=== PATIENT | male | born 1940 | race Caucasian/White ===

== ENCOUNTER 2020-12-08 05:43 | Emergency (ER) | payer MEDICARE, OTHER, SELFPAY ==
[2020-12-08] VITALS (12 sets, daily range): BP systolic 81–181; BP diastolic 47–91; PULSE 47–85; RESP 14–23; TEMP 36.6; O2SAT 89–95
[2020-12-08] MEDS: Benzocaine 20% Gel 30 GM JAR MM (06:04)
--- NOTE | 2020-12-08 06:13 | ED.GENADUL_ITS ---
Discharge Plan Disposition Patient Disposition: HOME Condition: Good Discharge Details Clinical Impression: Dental infection Primary Care Provider: None,None ED Provider: [employer] and New Rx's Prescriptions: New clindamycin HCl 300 mg capsule 300 mg PO TID Qty: 20 RF: 0 Continued diltiazem HCl 240 MG capsule,extended release 24hr 240 mg PO DAILY RF: 0 simvastatin 10 MG tablet 10 mg PO HS RF: 0 aspirin [Aspirin Low-Strength] 81 MG tablet,chewable 81 mg PO DAILY RF: 0 losartan 25 mg Tablet 25 mg PO DAILY RF: 0 Discharge Instructions Instructions: Dental Abscess (ED) Additional Instructions: Please take antibiotic as directed to treat the dental infection. You will need to see your dentist next week. Use Tylenol for pain. May also use the benzocaine topically to help with discomfort short-term. Return to ED for worsening facial pain/swelling/redness, fevers, difficulty breathing, inability to swallow. Medical Decision Making Patient with dental infection. Significant gingival swelling and bogginess suggesting fluctuant abscess. Discussed needle aspiration with patient who is agreeable to same. 20% benzocaine topical applied to the area. 21-gauge needle inserted into. With no return of pus. Some bleeding requiring gauze and pressure to control. Patient will be started on clindamycin for infection. He has been using Tylenol with pretty good relief. May also use benzocaine short- term. Will need to follow-up with his dentist next week. Return to ED if worsening facial pain/swelling/erythema, fever, difficulty breathing, inability to swallow. HPI General Mode of arrival: ambulatory . Date/Time Provider Initiated Documentation: 12/08/20 05:54 . Limitations to Documentation: no limitations . Information obtained by: patient and RN notes reviewed . HPI Narrative: Patient presents to the ED with right lower dental pain and facial swelling. He broke off a piece of tooth little over a week ago. He did see his dentist who filed it down but told him it may need to be pulled. Since yesterday he has had dental pain. Later in the day he noticed facial swelling. Both seemed worse this morning and he presented to ED for evaluation. He denies fever. He denies difficulty breathing or swallowing. Related Data Home Medications Medication Instructions Recorded Confirmed aspirin [Aspirin Low-Strength] 81 mg PO DAILY 08/04/15 12/08/20 diltiazem HCl 240 mg PO DAILY 08/04/15 12/08/20 simvastatin 10 mg PO HS 08/04/15 12/08/20 clindamycin HCl 300 mg PO TID #20 cap 12/08/20 losartan 25 mg PO DAILY 12/08/20 12/08/20 Previous Rx's Medication Instructions Recorded clindamycin HCl 300 mg PO TID #20 cap 12/08/20 Allergies Allergy/AdvReac Type Severity Reaction Status Date / Time No Known Allergies Allergy Verified 12/08/20 05:52 General Stated Complaint: DentalOral MARÍA ELENA: 4 Review of Systems Narrative: As documented in HPI otherwise negative as below. Const: no fever, chills, weakness Resp: no cough, SOB, pleuritic pain CV: no CP, diaphoresis, edema, syncope GI: no abdominal pain, nausea, vomiting, diarrhea Neuro: no headache, numbness, focal weakness, confusion PFSH Medical History HTN (hypertension) Hypercholesterolemia SVT (supraventricular tachycardia) Surgical History No significant past surgical history Social History Smoking/Tobacco Use Status: Former Tobacco Use Smoking risk assessment performed?: Yes Alcohol Intake: never Drug use: Never Do you feel safe at home: Yes Do you feel safe in your relationship?: Yes Exam Narrative Exam Narrative: Const: WDWN elderly male in NAD. HEENT: NC/AT. Right mandibular swelling and firmness without erythema. Fractured premolar right mandible with percussion tenderness. Significant gingival swelling extending into the buccal mucosa with some bogginess suggesting abscess. Eyes: Normal conjunctiva and sclera. Neck: Supple. Trachea midline. Lungs: Normal respiratory effort. Neuro: A+O x 3. Normal speech, mentation, gait. Cranial nerves II - XII grossly intact. No gross motor or sensory deficit. Skin: Warm and dry without erythema. Course Vital Signs Vital signs: Vital Signs Temperature 97.9 F 12/08/20 05:49 Pulse 85 12/08/20 05:49 Respiratory Rate 18 12/08/20 05:49 Blood Pressure 181/91 H 12/08/20 05:49 Pulse Oximetry 95 12/08/20 05:49 Temperature 97.9 F 12/08/20 05:49 Temperature Source Temporal Artery Scan 12/08/20 05:49 Pulse 85 12/08/20 05:49 Respiratory Rate 18 12/08/20 05:49 Respiratory Effort Non-Labored 12/08/20 05:54 Blood Pressure 181/91 H 12/08/20 05:49 Blood Pressure Position Sitting 12/08/20 05:49 Pulse Oximetry 95 12/08/20 05:49 Oxygen Delivery Method Room Air 12/08/20 05:49 Oxygen Flow Rate 0 12/08/20 05:49 Pain Level 5 12/08/20 05:55 Procedures Abscess I/D Site: Other (Gingival) Side (if applicable): Right Local Anesthetic: Other Anesthetic (Benzocaine topical) Technique: Needle Aspiration Amount of fluid expressed (mL): 0 Complications: Bleeding and Other (No pus obtained)
[2020-12-08] MEDS: Clindamycin 300 MG CAP PO (06:15)
[2020-12-08] MEDS: Acetaminophen 500 MG TAB 1000 MG PO (06:15)
--- NOTE | 2020-12-08 06:30 | RT.EKG_ITS ---
APPROVED REPORT Exam: Resting ECG Reason for Exam: CHEST PAIN Patient Location: E HR:61 bpm ECG Measurements Heart Rate 61 AXIS PA 263 P -5 QRSd 118 QRS -62 QT 442 T -76 QTc 446 Conclusion Sinus rhythm...normal P axis, V-rate 60- 99 Prolonged PA interval...PA >220, V-rate 50- 90 Left ventricular hypertrophy...multiple LVH criteria Inferior infarct, age indeterminate...Q>35mS, T neg, II III aVF Probable anterior infarct, age indeterminate...Q >35mS, T neg, V2-V5 I have reviewed and interpreted ECG and agree with software generated interpretation.
== END 2020-12-08 10:30 | disposition home or self-care (01) ==
PROVIDERS: Emergency Provider Emergency Medicine
DX: K04.7 Periapical abscess without sinus (principal); R42 Dizziness and giddiness; R07.9 Chest pain, unspecified; I44.0 Atrioventricular block, first degree
CPT/HCPCS: 93005; 99283; 93010

== ENCOUNTER 2022-04-23 11:06 | Outpatient (CLI) | payer OTHER, SELFPAY ==
--- NOTE | 2022-04-23 09:45 | DI.RAD_ITS ---
Exam(s) XR SHOULDER RT COMPLETE 2+V EXAM: XR SHOULDER RT COMPLETE 2+V CLINICAL HISTORY: RIGHT SHOULDER PAIN. TECHNIQUE: 2D digital imaging was performed. Five views. COMPARISON: No exams were available for comparison FINDINGS: BONES: No acute fracture is present. No bony destructive lesion is seen. JOINTS: No dislocation present. Severe narrowing of the glenohumeral joint space with [id number] a ppearance. Periarticular sclerosis. Prominent inferior spurring. Spurring is also noted at the AC joint, greater and lesser tuberosities. SOFT TISSUE: Normal. IMPRESSION: Severe degenerative changes glenohumeral joint. DATA REPOSITORY: RADIATION DOSE DELIVERED:
== END 2022-04-23 11:07 | disposition home or self-care (01) ==
LOC: DIORS 11:09
PROVIDERS: Visit Provider Student in an Organized Health Care Education/Training Program
DX: M25.511 Pain in right shoulder (principal); M19.011 Primary osteoarthritis, right shoulder
CPT/HCPCS: 73030

== ENCOUNTER 2022-07-31 01:03 | Outpatient (CLI) | payer OTHER, SELFPAY ==
--- NOTE | 2022-07-31 13:57 | DI.RAD_ITS ---
Exam(s) RF JOINT INJECTION FLUORO GUID EXAM: RF JOINT INJECTION FLUORO GUID CLINICAL HISTORY: R SHOULDER PAIN,INJ UNDER FLUORO,ARTHRITIS RT SHOULDER,M19.011 TECHNIQUE: 2D and realtime digital imaging was performed. CONTRAST MATERIAL: Refer to procedure report. COMPARISON: No exams were available for comparison FINDINGS: Fluoroscopy was provided for Dr. Leyva during the performance of a right shoulder injection. Please refer to the procedure report for complete details. Ka,r=0.23 mGy IMPRESSION: RADIATION DOSE DELIVERED:
[2022-07-31] MEDS: methylPREDNISolone ACETATE 80 MG/ML VIAL IM (13:59)
[2022-07-31] MEDS: Bupivacaine 0.5% Pres-Free 10 ML VIAL 5 ML IJ (14:00)
[2022-07-31] MEDS: Omnipaque 300 MG/ML 10 ML BTL IJ (14:00)
--- NOTE | 2022-07-31 14:49 | W.PROCNOTE ---
Date of service: 07/31/22 Time of Service: 14:00 Procedure Note Date of procedure: 07/31/22 Procedure: Right Shoulder Injection Surgeon/Proceduralist/Physician: Ever Pickett Procedure Diagnosis: Right Shoulder Injection Procedure Indications: Matt has had persistent pain of the RIGHT shoulder. Noninvasive measures have been tried. To serve as both diagnostic and therapeutic, an injection under fluoroscopy was recommended. I had discussed the risks of the procedure and the patient elected to proceed. Procedure Description: Matt was greeted in the flouroscopy room. The correct side was identified and the consent was reviewed with the patient and signed. The patient was then placed in the supine position on the fluoroscopy table. The RIGHT shoulder was then prepped with Chloraprep. The anterior injection starting point was identiifed by bony landmarks and fluoroscopy. The skin and soft tissue in the tract of the injection was anesthetized with 1% Lidocaine. A spinal needle was then inserted deep into the shoulder joint at the level of the recess between the glenoid and superior humeral head. A small amount of Omnipaque solution was injected to confirm intraarticular placement. Once confirmed, the shoulder was injected with 5cc of 0.5% Bupivicaine and 80mg of Depo-Medrol. A bandaid was placed on the injection site. The patient tolerated the procedure well and noted improvement in pre-injection pain.
== END 2022-07-31 01:23 ==
LOC: DI 01:03
PROVIDERS: Visit Provider Student in an Organized Health Care Education/Training Program
DX: M19.011 Primary osteoarthritis, right shoulder (principal); M25.511 Pain in right shoulder
CPT/HCPCS: 20610; 77002; J1040